=== PATIENT | male | born 1980 | race Two or more races ===

== ENCOUNTER → 2024-05-27 | Outpatient (CLI) | payer MEDICAID, SELFPAY ==
--- NOTE | 2024-05-27 09:15 | XR_ITS ---
Examination: MRI lumbar spine without contrast Date and time of exam: May 27, 2024 1125 hrs. Indications: Low back pain radiating down the right leg this week Technique: Multiple MRI axial and sagittal sections lumbar spine. Sagittal T2-weighted images, TR 3500, TE 118 T1 weighted transverse sections, TR 688 T8.5, T2-weighted sagittal sections T1 weighted sagittal sections TR 621, TE 30 T2 axial sections, TR 4, 190, TE 84. Findings: Adequate alignment lumbar vertebral bodies on the lateral view Disc desiccation L5-S1 Normal marrow signal lumbar vertebral bodies No lumbar fracture No spondylolisthesis L5-S1 5 mm partially extruded left paracentral disc, displacing the left S1 nerve root L4-L5 no disc protrusion L3-L4 no disc protrusion L2-L3 no disc protrusion L1-L2 no disc protrusion Impression: L5-S1 5 mm partially extruded left paracentral disc displacing the left S1 nerve root
== END | disposition home or self-care (01) ==
PROVIDERS: PCP Nurse Practitioner Family; Referring Provider Nurse Practitioner Family; Visit Provider Nurse Practitioner Family
DX: M51.27 Other intervertebral disc displacement, lumbosacral region (principal)
CPT/HCPCS: 72148

== ENCOUNTER → 2024-08-05 | Outpatient (CLI) | payer MEDICAID, SELFPAY ==
--- NOTE | 2024-08-05 13:00 | XR_ITS ---
Examination: MRI lumbar spine without contrast Date and time of exam: August 05, 2024 1334 hours Comparison May 27, 2024 INDICATIONS: Low back pain radiating down the legs beginning one year ago Technique: Multiple MRI axial and sagittal sections lumbar spine. Sagittal T2-weighted images, TR 3500, TE 118 T1 weighted transverse sections, TR 688 T8.5, T2-weighted sagittal sections T1 weighted sagittal sections TR 621, TE 30 T2 axial sections, TR 4, 190, TE 84. Findings: Adequate alignment lumbar vertebral bodies No lumbar fracture Disc desiccation L5-S1 Mild disc narrowing L5-S1 L5-S1 partially extruded left paracentral disc, 5 mm, surrounding the left S1 nerve root More cephalad levels are unremarkable IMPRESSION: L5-S1 partially extruded 5 mm left paracentral disc, surrounding the left S1 nerve root
== END | disposition home or self-care (01) ==
LOC: SMRI 12:59
PROVIDERS: Referring Provider Nurse Practitioner Family; Visit Provider Nurse Practitioner Family
DX: M51.27 Other intervertebral disc displacement, lumbosacral region (principal)
CPT/HCPCS: 72148

== ENCOUNTER → 2024-09-08 | Outpatient (CLI) | payer MEDICAID, SELFPAY ==
--- NOTE | 2024-09-08 10:15 | XR_ITS ---
Examination: MRI cervical spine without intravenous contrast Date and time of exam: September 08, 2024 at 1028 hours Comparison March 24, 2024 INDICATIONS: Neck pain radiating to both hands 2 years Technique: Multiple axial and sagittal sections of the cervical spine to been obtained. T2 weighted sagittal sections, TR 3, 270, TE 117 T1-weighted sagittal sections, TR 500, TE 11 T1-weighted axial sections, TR 607, TE 12, axial sections TR 18, TE 27 and T2 weighted transverse sections, TR 3920, TE 122. Findings: Satisfactory alignment cervical vertebral bodies No cervical fracture Intact odontoid No cervical disc narrowing No localized enlargement cervical cord C4-C5 2 mm central cervical disc protrusion C5-C6 moderate bilateral neural foraminal stenosis IMPRESSION: C4-C5 2 mm central disc protrusion C5-C6 moderate bilateral neural foraminal stenosis
--- NOTE | 2024-09-08 10:45 | XR_ITS ---
Examination: MRI thoracic spine without contrast. Date and time of exam: September 08, 2024 1053 hours INDICATIONS: Mid back pain beginning 2 years ago Technique: Multiple sagittal and axial images of the thoracic spine have been obtained. T1 weighted localizer, sagittal T2 weighted images, TR 30-50, TE 148, T1 weighted sagittal images, TR 650, TE 14, T2-weighted transverse images, TR 6770, TE 142 Findings: Adequate alignment thoracic vertebral bodies Mild diffuse thoracic disc narrowing No thoracic fracture No focal thoracic disc protrusion No impingement upon the thoracic cord No localized enlargement thoracic cord Impression: Mild diffuse thoracic degenerative disc disease No focal thoracic disc protrusion
== END | disposition home or self-care (01) ==
LOC: SMRI 10:07
PROVIDERS: PCP Nurse Practitioner Family; Referring Provider Physician Assistant; Visit Provider Physician Assistant
DX: M50.221 Other cervical disc displacement at C4-C5 level (principal); M48.02 Spinal stenosis, cervical region; M51.34 Other intervertebral disc degeneration, thoracic region
CPT/HCPCS: 72141; 72146